=== PATIENT | male | born 1990 | race African-American/Black ===

== ENCOUNTER 2017-02-14 05:34 | Emergency (ER) | payer OTHER ==
[~2017-02-14] VITALS: Ht 190.5 cm; Wt 88.9 kg
[~2017-02-14 05:34] MED LIST: AUGMENTIN 875-1 EACH PO; AZASITE2.5 ML OP; CILOXAN5 ML OPH; MEDROL4 M2 PO
[2017-02-14] MEDS ORDERED: PERCOCET 5-3251 EACH PO (05:46)
[2017-02-14] MEDS ORDERED: AMOXICILLIN500 M3 PO (05:46)
--- NOTE | 2017-02-14 05:47 | ED SKIN/ALLERGY COMPLAINT ---
History of Present Illness General Chief Complaint: Skin Rash/ Abcess Stated Complaint: BLISTERS ON THIGHS Source: patient Exam Limitations: no limitations Vital Signs & Intake/Output Vital Signs & Intake/Output Vital Signs Date Time Temp Pulse Resp B/P B/P Pulse O2 O2 Flow FiO2 Mean Ox Delivery Rate 02/14 0549 97.9 82 16 131/81 98 Room Air Room Air Allergies Coded Allergies: No Known Allergies (04/25/16) Reconcile Medications Amoxicillin 500 MG TABLET 1 TAB PO TID ABSCESS Amoxicillin/Potassium Clav (Augmentin 875-125 Tablet) 1 EACH TABLET 1 TAB PO BID pharyngitis Methylprednisolone. (Medrol) 4 MG TAB.DS.PK 1 DP PO AD pharyngitis 6 on day 1 then reduce by one tablet daily until gone Oxycodone HCl/Acetaminophen (Percocet 5-325 MG Tablet) 5 MG-325 MG TABLET 1-2 TAB PO Q6P PRN PAIN Triage Nurses Notes Reviewed? yes HPI: Patient presents with a swollen painful bump to his right inner thigh. Patient noticed it last night at work. Patient states that it hurts and the pain worsens when he walks and his thighs rub together. There is no radiation of pain. The pain is aching and nature. He rates the pain at 6 out of 10. There are no fevers or chills. There is no penile discharge. No dysuria. Past History Travel History Traveled to [place] past 21 day No Medical History Any Pertinent Medical History? none Surgical History Surgical History: non-contributory Psychosocial History What is your primary language Bahamian Tobacco Use: Never used ETOH Use: occasional use Illicit Drug Use: denies illicit drug use Family History Hx Contributory? No Review of Systems Review of Systems Constitutional: Reports: no symptoms. Respiratory: Reports: no symptoms. Cardiovascular: Reports: no symptoms. GI: Reports: no symptoms. Genitourinary: Reports: no symptoms. Musculoskeletal: Reports: no symptoms. Skin: Reports: see HPI. Neurological/Psychological: Reports: no symptoms. Immunologic/Allergic: Reports: no symptoms. Physical Exam Physical Exam General Appearance: well developed/nourished, alert, awake, mild distress Eyes: Bilateral: PERRL, EOMI. Neck: normal inspection, supple, full range of motion Respiratory: normal breath sounds, chest non-tender, no respiratory distress, lungs clear Cardiovascular: regular rate/rhythm, normal peripheral pulses Gastrointestinal: normal bowel sounds, soft, non-tender, no organomegaly Extremities: normal inspection, normal capillary refill Neurologic/Psych: no motor/sensory deficits, awake, alert, oriented x 3, normal gait, normal mood/affect Skin: intact, normal color Skin Problem Location: right groin Skin Problem Character: abcess Lymphatic: no inguinal LAD Progress Differential Diagnosis: abscess/cellulitis Plan of Care: ABX Comments: PT ADVISED THAT LANCING IT WOULD BE THE BEST TREATMENT. PT STATES THAT HE DOES NOT LIKE NEEDLES AND DOES NOT WANT TO HAVE IT OPENED AT THIS TIME. HE STATES THAT HE WOULD PREFER TO TRY ANTIBIOTICS FIRST TO SEE IF THAT WILL HELP. HE HAS BEEN ADVISED THAT HE WILL MORE THAN LIKELY NEED TO HAVE IT OPENED IN THE NEAR FURUTRE BUT WE WILL TRY ANTIBIOTICS FIRST. Departure Departure Disposition: HOME OR SELF CARE Condition: Stable Clinical Impression Primary Impression: Abscess Referrals: PATIENT HAS NO PRIMARY CARE DR (PCP/Family) Additional Instructions: TAKE ANTIBIOTIC PRESCRIBED RETURN IF SYMPTOMS WORSEN OR FOR ANY CONCERNS Departure Forms: Customer Survey General Discharge Information Prescriptions: Current Visit Scripts Amoxicillin 1 TAB PO TID #30 TAB Oxycodone HCl/Acetaminophen (Percocet 5-325 MG Tablet) 1-2 TAB PO Q6P PRN PAIN #10 TAB
[2017-02-14 05:49] VITALS: BP 131/81
== END 2017-02-14 05:55 ==
LOC: ERH 05:34
DX: L02.415 Cutaneous abscess of right lower limb (principal)